=== PATIENT | female | born 1955 | race African-American/Black ===

== ENCOUNTER 2016-12-19 06:23 | Emergency (ER) | payer MEDICARE, OTHER ==
[~2016-12-19] VITALS: Ht 162.6 cm; Wt 78.0 kg
[~2016-12-19 06:23] MED LIST: ASPI81 PO; ATOR40TA28 PO; CARI350 PO; CLON.1 PO; FLUO-191 PO; GABA-529 PO; HYDR-309 PO; HYDR25TA PO; LEVO137T2 PO; METF10002 PO; OLME20TA14 PO; SITA25 PO; TRAZ-147 PO
[2016-12-19 08:05] VITALS: BP 145/80
== END 2016-12-19 08:08 | disposition home or self-care (01) ==
LOC: EMS 06:25
DX: S40.861A Insect bite (nonvenomous) of right upper arm, initial encounter (principal); S40.862A Insect bite (nonvenomous) of left upper arm, initial encounter; S80.861A Insect bite (nonvenomous), right lower leg, initial encounter; S80.862A Insect bite (nonvenomous), left lower leg, initial encounter; I10 Essential (primary) hypertension; E03.9 Hypothyroidism, unspecified; E78.00 Pure hypercholesterolemia, unspecified; E11.9 Type 2 diabetes mellitus without complications; Z87.891 Personal history of nicotine dependence; Z79.82 Long term (current) use of aspirin; W57.XXXA Bitten or stung by nonvenomous insect and other nonvenomous arthropods, initial encounter; Y93.89 Activity, other specified; Y92.89 Other specified places as the place of occurrence of the external cause; Y99.8 Other external cause status
CPT/HCPCS: 99283

== ENCOUNTER 2017-02-08 14:04 | Emergency (ER) | payer MEDICARE, OTHER ==
[~2017-02-08] VITALS: Ht 162.6 cm; Wt 81.8 kg
[~2017-02-08 14:04] MED LIST changes: +CLON-570 PO; -CLON.1 PO; -OLME20TA14 PO; +OLME20TA20 PO
[2017-02-08] MEDS ORDERED: SITA100 PO (14:16)
[2017-02-08 15:50] VITALS: BP 149/83
== END 2017-02-08 15:55 | disposition home or self-care (01) ==
LOC: EMS 14:06
DX: J40 Bronchitis, not specified as acute or chronic (principal); F31.9 Bipolar disorder, unspecified; M54.2 Cervicalgia; G89.29 Other chronic pain; E11.9 Type 2 diabetes mellitus without complications; E78.00 Pure hypercholesterolemia, unspecified; I10 Essential (primary) hypertension; E03.9 Hypothyroidism, unspecified; F20.9 Schizophrenia, unspecified; Z79.82 Long term (current) use of aspirin
CPT/HCPCS: 82962; 93005; 99284

== ENCOUNTER 2017-02-16 10:16 | Emergency (ER) | payer MEDICARE, OTHER ==
[~2017-02-16] VITALS: Ht 162.6 cm; Wt 81.5 kg
[~2017-02-16 10:16] MED LIST changes: +SITA100 PO; -SITA25 PO
[2017-02-16] MEDS ORDERED: ACETAMINOPHEN/CODEINE 300-30 MG TABLET PO ONE (11:45)
[2017-02-16 12:36] VITALS: BP 138/79
== END 2017-02-16 12:56 | disposition home or self-care (01) ==
LOC: EMS 10:18
DX: J02.9 Acute pharyngitis, unspecified (principal)
CPT/HCPCS: 87430; 99283

== ENCOUNTER 2017-03-17 19:37 | Emergency (ER) | payer MEDICARE, OTHER ==
[~2017-03-17] VITALS: Ht 162.6 cm; Wt 82.5 kg
[2017-03-17 19:52] LABS: GLUCOSE,POINT OF CARE 131 MG/DL (70-110)
[2017-03-17] MEDS ORDERED: SODIUM CHLORIDE 0.9% 1,000 ML IV ONE (20:30)
[2017-03-17] MEDS ORDERED: DiphenhydrAMINE HCL 50 MG/ML VIAL IVP ONE (20:30)
[2017-03-17] MEDS ORDERED: METOCLOPRAMIDE HCL 5 MG/ML 2 ML VIAL IVP ONE (20:30)
[2017-03-17 20:51] LABS: BASOPHILS % (AUTO) 0.4 % (0.0-2.0); HEMATOCRIT 41.8 % (36-46); HEMOGLOBIN 13.9 g/dL (12.0-16.0); LYMPHOCYTES # (AUTO) 3.1 K/uL (1.0-4.8); LYMPHOCYTES % (AUTO) 45.2 % (22.0-44.0); MEAN CORPUSCULAR HEMOGLOBIN 27.2 pg (26.0-34.0); MEAN CORPUSCULAR HGB CONC 33.3 G/dL (31.0-37.0); MEAN CORPUSCULAR VOLUME 82 fL (80-100); MONOCYTES # (AUTO) 0.5 K/uL (0.1-1.0); NEUTROPHILS # (AUTO) 3.1 K/uL (1.8-7.7); NEUTROPHILS % (AUTO) 46.4 % (40.0-70.0); PLATELET COUNT (AUTO) 242 K/uL (150-450); RED BLOOD CELL COUNT(AUTO) 5.12 MIL/uL (4.00-5.20)
[2017-03-17 20:54] LABS: ANION GAP 10 mmol/L (8-16); CALCIUM, TOTAL 9.4 mg/dL (8.8-10.5); CARBON DIOXIDE 30 mmol/L (22-29); CHLORIDE 100 mmol/L (98-107); CREATININE 0.99 mg/dL (0.60-1.30); GLOMERULAR FILTR. RATE CALC > 60 mL/min (>60); GLUCOSE,RANDOM 138 mg/dL (70-110); POTASSIUM 3.7 mmol/L (3.5-5.1); SODIUM SERUM 140 mmol/L (136-145); UREA NITROGEN, BLOOD 15 mg/dL (7-18)
[2017-03-17] MEDS ORDERED: KETOROLAC TROMETHAMINE 30 MG/ML VIAL IVP ONE (21:30)
[2017-03-17 22:20] VITALS: BP 131/82
== END 2017-03-17 22:37 | disposition home or self-care (01) ==
LOC: EMS 19:38
DX: R51 Headache (principal); I10 Essential (primary) hypertension; E11.9 Type 2 diabetes mellitus without complications; E78.00 Pure hypercholesterolemia, unspecified; E03.9 Hypothyroidism, unspecified; J40 Bronchitis, not specified as acute or chronic
CPT/HCPCS: 36415; 80048; 82962; 85025; 96361; 96374; 96375; 99284; J1200; J1885; J2765; J7030

== ENCOUNTER 2017-07-29 12:05 | Emergency (ER) | payer MEDICARE, OTHER ==
[~2017-07-29] VITALS: Ht 162.6 cm; Wt 83.2 kg
[~2017-07-29 12:05] MED LIST changes: +OLME20TA10 PO; -OLME20TA20 PO
[2017-07-29] MEDS ORDERED: ACETAMINOPHEN 325 MG TABLET PO ONE (12:45)
[2017-07-29] MEDS ORDERED: GuaiFENesin/D-METHORPHAN [SUGAR-FREE] 200-20MG/10 ML SYRUP UDCUP PO ONE (12:45)
[2017-07-29 13:08] VITALS: BP 142/83
== END 2017-07-29 13:24 | disposition home or self-care (01) ==
LOC: EMS 12:06
DX: J06.9 Acute upper respiratory infection, unspecified (principal); H92.02 Otalgia, left ear; I10 Essential (primary) hypertension; E03.9 Hypothyroidism, unspecified; E78.00 Pure hypercholesterolemia, unspecified; E11.9 Type 2 diabetes mellitus without complications
CPT/HCPCS: 99283

== ENCOUNTER 2017-08-18 15:48 | Emergency (ER) | payer MEDICARE, OTHER ==
[~2017-08-18] VITALS: Ht 170.2 cm; Wt 81.0 kg
[2017-08-18] MEDS ORDERED: DiphenhydrAMINE HCL 25 MG CAPSULE PO ONE (17:00)
[2017-08-18] MEDS ORDERED: HYDROCORTISONE 1% 30 GM OINTMENT TP ONE (17:00)
[2017-08-18 17:42] VITALS: BP 138/90
== END 2017-08-18 17:46 | disposition home or self-care (01) ==
LOC: EMS 15:49
DX: S40.861A Insect bite (nonvenomous) of right upper arm, initial encounter (principal); I10 Essential (primary) hypertension; E11.9 Type 2 diabetes mellitus without complications; E78.00 Pure hypercholesterolemia, unspecified; E03.9 Hypothyroidism, unspecified; G89.29 Other chronic pain; Z79.82 Long term (current) use of aspirin; W57.XXXA Bitten or stung by nonvenomous insect and other nonvenomous arthropods, initial encounter; Y93.89 Activity, other specified; Y92.89 Other specified places as the place of occurrence of the external cause; Y99.8 Other external cause status
CPT/HCPCS: 82962; 99283

== ENCOUNTER 2017-09-05 16:58 | Emergency (ER) | payer MEDICARE, OTHER ==
[~2017-09-05] VITALS: Ht 162.6 cm; Wt 80.5 kg
[2017-09-05 18:26] LABS: BASOPHILS % (AUTO) 1.1 % (0.0-2.0); EOSINOPHILS % (AUTO) 2.4 % (1.0-6.0); HEMATOCRIT 42.6 % (36-46); HEMOGLOBIN 13.9 g/dL (12.0-16.0); LYMPHOCYTES % (AUTO) 37.1 % (22.0-44.0); MEAN CORPUSCULAR HEMOGLOBIN 26.4 pg (26.0-34.0); MEAN CORPUSCULAR HGB CONC 32.7 G/dL (31.0-37.0); MEAN CORPUSCULAR VOLUME 81 fL (80-100); MONOCYTES # (AUTO) 0.7 K/uL (0.1-1.0); MONOCYTES % (AUTO) 8.1 % (2.0-9.0); NEUTROPHILS # (AUTO) 4.1 K/uL (1.8-7.7); NEUTROPHILS % (AUTO) 51.3 % (40.0-70.0); PLATELET COUNT (AUTO) 261 K/uL (150-450); RED BLOOD CELL COUNT(AUTO) 5.27 MIL/uL (4.00-5.20); RED CELL DISTRIBUTION WIDTH 14.6 % (11.5-14.5)
[2017-09-05 18:40] LABS: ANION GAP 9 mmol/L (8-16); CALCIUM, TOTAL 9.6 mg/dL (8.8-10.5); CARBON DIOXIDE 30 mmol/L (22-29); CHLORIDE 100 mmol/L (98-107); CREATININE 1.11 mg/dL (0.60-1.30); GLOMERULAR FILTR. RATE CALC > 60 mL/min (>60); GLUCOSE,RANDOM 162 mg/dL (70-110); POTASSIUM 3.1 mmol/L (3.5-5.1); SODIUM SERUM 139 mmol/L (136-145); UREA NITROGEN, BLOOD 17 mg/dL (7-18)
[2017-09-05 18:41] LABS: APPEARANCE,URINE CLEAR (CLEAR); BILIRUBIN,URINE NEGATIVE (NEGATIVE); GLUCOSE, URINE (UA) NEGATIVE (NEGATIVE); KETONES,URINE TRACE mg/dL (NEGATIVE); LEUKOCYTE ESTERASE ,URINE NEGATIVE (NEGATIVE); NITRATE,URINE NEGATIVE (NEGATIVE); OCCULT BLOOD,URINE NEGATIVE (NEGATIVE); PH,URINE 5.5 (5.0-8.0); PROTEIN,URINE NEGATIVE (NEGATIVE); UROBILINOGEN,URINE 0.2 mg/dL (<=1.0)
[2017-09-05 18:45] LABS: ALANINE AMINOTRANSFERASE 20 U/L (12-78); ALBUMIN 3.9 g/dL (3.4-5.0); ALKALINE PHOSPHATASE 87 U/L (46-116); ASPARTATE AMINOTRANSFERASE 12 U/L (15-37); BILIRUBIN,TOTAL 0.2 mg/dL (0.1-1.0); LIPASE 115 U/L (73-393); TOTAL PROTEIN, SERUM 7.8 g/dL (6.4-8.2)
[2017-09-05] MEDS ORDERED: HYDROCODONE/ACETAMINOPHEN 5-325 MG TABLET PO ONE (19:00)
[2017-09-05 19:13] LABS: GLUCOSE,POINT OF CARE 137 MG/DL (70-110)
[2017-09-05] MEDS ORDERED: POTASSIUM CHLORIDE 20 MEQ ER TABLET PO ONE (20:15)
[2017-09-05 21:08] VITALS: BP 132/75
== END 2017-09-05 21:41 | disposition home or self-care (01) ==
LOC: EMS 16:58
DX: R10.31 Right lower quadrant pain (principal); E87.6 Hypokalemia; F31.9 Bipolar disorder, unspecified; E11.65 Type 2 diabetes mellitus with hyperglycemia; I10 Essential (primary) hypertension; F20.9 Schizophrenia, unspecified; E03.9 Hypothyroidism, unspecified; G89.29 Other chronic pain; Z90.710 Acquired absence of both cervix and uterus; Z79.82 Long term (current) use of aspirin; Z79.899 Other long term (current) drug therapy
CPT/HCPCS: 76856; 82962; 99285

== ENCOUNTER 2017-11-30 06:17 | Emergency (ER) | payer MEDICARE, OTHER ==
[~2017-11-30] VITALS: Ht 162.6 cm; Wt 75.0 kg
[~2017-11-30 06:17] MED LIST changes: -METF10002 PO; +METF10004 PO; -TRAZ-147 PO; +TRAZ-220 PO
[2017-11-30 06:30] VITALS: BP 111/88
[2017-11-30 06:43] LABS: GLUCOSE,POINT OF CARE 141 MG/DL (70-110)
== END 2017-11-30 08:58 | disposition home or self-care (01) ==
LOC: EMS 06:18
DX: L73.8 Other specified follicular disorders (principal)
CPT/HCPCS: 99282

== ENCOUNTER 2017-12-26 18:56 | Emergency (ER) | payer MEDICARE, OTHER ==
[~2017-12-26] VITALS: Ht 162.6 cm; Wt 78.2 kg
[2017-12-26 19:18] LABS: GLUCOSE,POINT OF CARE 166 MG/DL (70-110)
[2017-12-26] MEDS ORDERED: LOSA50TA37 PO (19:19)
[2017-12-26] MEDS ORDERED: AMLO-512 PO (19:19)
[2017-12-26] MEDS ORDERED: ACETAMINOPHEN 500 MG TABLET PO ONE (20:00)
[2017-12-26 21:38] VITALS: BP 138/86
== END 2017-12-26 21:44 | disposition home or self-care (01) ==
LOC: EMS 18:58
DX: S60.222A Contusion of left hand, initial encounter (principal); M54.5 Low back pain; F20.9 Schizophrenia, unspecified; F31.9 Bipolar disorder, unspecified; E11.9 Type 2 diabetes mellitus without complications; E78.00 Pure hypercholesterolemia, unspecified; I10 Essential (primary) hypertension; E03.9 Hypothyroidism, unspecified; G89.29 Other chronic pain; Z90.710 Acquired absence of both cervix and uterus; Z79.82 Long term (current) use of aspirin; Z79.84 Long term (current) use of oral hypoglycemic drugs; W19.XXXA Unspecified fall, initial encounter; Y93.89 Activity, other specified; Y92.89 Other specified places as the place of occurrence of the external cause; Y99.8 Other external cause status
CPT/HCPCS: 99284

== ENCOUNTER 2018-03-31 00:31 | Inpatient (IN) | payer MEDICARE, OTHER ==
[~2018-03-31] VITALS: Ht 162.6 cm; Wt 82.5 kg
[2018-03-31] VITALS (7 sets, daily range): BP systolic 124–166; BP diastolic 71–94
[~2018-03-31 00:31] MED LIST changes: +AMLO-512 PO; -ATOR40TA28 PO; -CARI350 PO; +LOSA50TA25 PO; +METF-446 PO; -METF10004 PO; -OLME20TA10 PO; -TRAZ-220 PO
[2018-03-31 00:48] LABS: GLUCOSE,POINT OF CARE 130 MG/DL (70-110)
[2018-03-31] MEDS ORDERED: HYDR25TA PO (01:05)
[2018-03-31] MEDS ORDERED: ALBU8HFA IH (01:05)
[2018-03-31] MEDS ORDERED: FLUT110HFA IH (01:05)
[2018-03-31] MEDS ORDERED: ATOR10TA84 PO (01:05)
[2018-03-31] MEDS ORDERED: SENN-176 PO (01:05)
[2018-03-31] MEDS ORDERED: KDUR20 PO (01:05)
[2018-03-31] MEDS ORDERED: GABA-529 PO (01:05)
[2018-03-31] MEDS ORDERED: IBUP-2070 PO (01:05)
[2018-03-31] MEDS ORDERED: CETI-290 PO (01:05)
[2018-03-31 01:08] LABS: HEMATOCRIT 38.7 % (36-46); HEMOGLOBIN 12.7 g/dL (12.0-16.0); MEAN CORPUSCULAR HEMOGLOBIN 26.6 pg (26.0-34.0); MEAN CORPUSCULAR HGB CONC 32.8 G/dL (31.0-37.0); MEAN CORPUSCULAR VOLUME 81 fL (80-100); PLATELET COUNT (AUTO) 228 K/uL (150-450); RED BLOOD CELL COUNT(AUTO) 4.77 MIL/uL (4.00-5.20); RED CELL DISTRIBUTION WIDTH 14.6 % (11.5-14.5)
[2018-03-31 01:17] LABS: ANION GAP 8 mmol/L (8-16); CALCIUM, TOTAL 8.4 mg/dL (8.8-10.5); CARBON DIOXIDE 31 mmol/L (22-29); CHLORIDE 103 mmol/L (98-107); CREATININE 0.83 mg/dL (0.60-1.30); GLOMERULAR FILTR. RATE CALC > 60 mL/min (>60); GLUCOSE,RANDOM 152 mg/dL (70-110); SODIUM SERUM 142 mmol/L (136-145); UREA NITROGEN, BLOOD 13 mg/dL (7-18)
[2018-03-31 01:20] LABS: INR 0.9 (0.9-1.1); PROTHROMBIN TIME 9.9 SEC (9.4-11.6)
[2018-03-31] MEDS ORDERED: ASPIRIN 81 MG CHEWABLE TABLET PO ONE (01:30)
[2018-03-31] MEDS ORDERED: ONDANSETRON HCL 4 MG/2 ML VIAL IVP ONE (01:30)
[2018-03-31] MEDS ORDERED: SODIUM CHLORIDE 0.9% 1,000 ML IV ONE (01:30)
[2018-03-31] MEDS ORDERED: MORPHINE SULFATE 4 MG/ML SYRINGE IVP ONE (01:30)
[2018-03-31] MEDS ORDERED: NITROGLYCERIN 2% (1 GM=INCH) PACKET TP ONE (01:30)
[2018-03-31 01:37] LABS: BAND NEUTROPHILS % (MANUAL) 0 % (0-5)
[2018-03-31 01:38] LABS: EOSINOPHILS % (MANUAL) 3 % (1-6); LYMPHOCYTES % (MANUAL) 60 % (22-44); MONOCYTES % (MANUAL) 5 % (2-9); REACTIVE LYMPHOCYTES 6 % (0-0); SEGMENTED NEUTROPHILS % 26 % (40-70)
[2018-03-31 01:39] LABS: B-TYPE NATRIURETIC PEPTIDE < 5 pg/mL (0-100)
[2018-03-31 01:42] LABS: ALANINE AMINOTRANSFERASE 25 U/L (12-78); ALBUMIN 3.4 g/dL (3.4-5.0); ALKALINE PHOSPHATASE 89 U/L (46-116); ASPARTATE AMINOTRANSFERASE 21 U/L (15-37); BILIRUBIN,TOTAL 0.2 mg/dL (0.1-1.0); CREATINE KINASE, TOTAL ONLY 295 U/L (26-192); TOTAL PROTEIN, SERUM 6.7 g/dL (6.4-8.2)
[2018-03-31 01:50] LABS: D-DIMER 0.17 mg/L FEU (0.00-0.50)
[2018-03-31] MEDS ORDERED: KETOROLAC TROMETHAMINE 30 MG/ML VIAL IVP ONE (02:15)
[2018-03-31 02:34] LABS: APPEARANCE,URINE CLOUDY (CLEAR); BILIRUBIN,URINE NEGATIVE (NEGATIVE); GLUCOSE, URINE (UA) NEGATIVE (NEGATIVE); KETONES,URINE NEGATIVE (NEGATIVE); LEUKOCYTE ESTERASE ,URINE NEGATIVE (NEGATIVE); NITRATE,URINE NEGATIVE (NEGATIVE); OCCULT BLOOD,URINE NEGATIVE (NEGATIVE); PROTEIN,URINE NEGATIVE (NEGATIVE); UROBILINOGEN,URINE 0.2 mg/dL (<=1.0)
[2018-03-31] MEDS ORDERED: SODIUM CHLORIDE 0.9% 100 ML ONE (02:57)
[2018-03-31] MEDS ORDERED: IOVERSOL 350 MG/ML 100 ML VIAL ONE (02:57)
[2018-03-31] MEDS ORDERED: POTASSIUM CHLORIDE 20 MEQ ER TABLET PO ONE (03:45)
[2018-03-31 04:03] LABS: GLUCOSE,POINT OF CARE 99 MG/DL (70-110)
[2018-03-31] MEDS ORDERED: ACETAMINOPHEN 325 MG TABLET PO PRN (05:00)
[2018-03-31] MEDS ORDERED: ONDANSETRON HCL 4 MG/2 ML VIAL IVP PRN (05:00)
[2018-03-31] MEDS ORDERED: 0.9% SODIUM CHLORIDE 10 ML SYRINGE IVP PRN (05:00)
[2018-03-31] MEDS ORDERED: MULT-1203 PO (07:41)
[2018-03-31] MEDS ORDERED: INSULIN LISPRO 100 UNITS/ML SQ PRN (09:45)
[2018-03-31] MEDS ORDERED: DEXTROSE 50%-WATER 25 GM/50 ML SYRINGE IVP PRN (09:45)
[2018-03-31] MEDS ORDERED: MAGNESIUM HYDROXIDE SUSPENSION 30 ML UDCUP PO PRN (09:45)
[2018-03-31] MEDS: ACETAMINOPHEN 325 MG TABLET PO PRN ×2 (09:47→20:38)
[2018-03-31] MEDS: ASPIRIN 81 MG CHEWABLE TABLET PO SCH (11:19)
[2018-03-31] MEDS: LEVOTHYROXINE SODIUM 137 MCG TABLET PO SCH (11:19)
[2018-03-31 13:34] LABS: GLUCOMETER DEV NAME(LOC) 5S 1N; GLUCOSE,POINT OF CARE 143 MG/DL (70-110)
[2018-03-31] MEDS: HEPARIN SODIUM,PORCINE 5,000 UNITS/ML VIAL SQ SCH (15:51)
[2018-03-31 18:38] LABS: GLUCOMETER DEV NAME(LOC) 5N 1P; GLUCOSE,POINT OF CARE 149 MG/DL (70-110)
[2018-03-31 18:39] LABS: GLUCOMETER DEV NAME(LOC) 5N 1P; GLUCOSE,POINT OF CARE 100 MG/DL (70-110)
[2018-03-31] MEDS: DOCUSATE SODIUM 100 MG CAPSULE PO SCH (20:18)
[2018-04-01] MEDS: HEPARIN SODIUM,PORCINE 5,000 UNITS/ML VIAL SQ SCH ×2 (00:15→08:15)
[2018-04-01 04:33] VITALS: BP 141/79
[2018-04-01] MEDS: LEVOTHYROXINE SODIUM 137 MCG TABLET PO SCH (05:31)
[2018-04-01 05:59] LABS: ANION GAP 3 mmol/L (8-16); CALCIUM, TOTAL 8.3 mg/dL (8.8-10.5); CARBON DIOXIDE 34 mmol/L (22-29); CHLORIDE 104 mmol/L (98-107); CREATININE 0.95 mg/dL (0.60-1.30); GLOMERULAR FILTR. RATE CALC > 60 mL/min (>60); GLUCOSE,RANDOM 126 mg/dL (70-110); POTASSIUM 3.6 mmol/L (3.5-5.1); SODIUM SERUM 141 mmol/L (136-145); UREA NITROGEN, BLOOD 11 mg/dL (7-18)
[2018-04-01 08:03] VITALS: BP 146/88
[2018-04-01] MEDS: DOCUSATE SODIUM 100 MG CAPSULE PO SCH (08:16)
[2018-04-01] MEDS: ASPIRIN 81 MG CHEWABLE TABLET PO SCH (08:16)
[2018-04-01] MEDS: ACETAMINOPHEN 325 MG TABLET PO PRN (08:17)
[2018-04-01] MEDS ORDERED: PANTOPRAZOLE SODIUM 40 MG DR TABLET PO SCH (09:00)
[2018-04-01] MEDS ORDERED: LISINOPRIL 5 MG TABLET PO SCH (09:00)
[2018-04-01] MEDS ORDERED: METOPROLOL TARTRATE 25 MG TABLET PO SCH (09:00)
[2018-04-01 09:29] LABS: GLUCOMETER DEV NAME(LOC) 5S 1N; GLUCOSE,POINT OF CARE 123 MG/DL (70-110)
[2018-04-01 11:31] VITALS: BP 148/81
[2018-04-01 17:24] LABS: GLUCOMETER DEV NAME(LOC) 5S 2R; GLUCOSE,POINT OF CARE 124 MG/DL (70-110)
[2018-04-02 14:34] LABS: GLUCOMETER DEV NAME(LOC) 5S 1N; GLUCOSE,POINT OF CARE 119 MG/DL (70-110)
== END 2018-04-01 13:10 | disposition home or self-care (01) | DRG 313 ==
LOC: EMS 00:31 → 5S 05:04
PROVIDERS: ADMIT Internal Medicine; ATTEND Internal Medicine
DX: R07.89 Other chest pain (principal); E03.9 Hypothyroidism, unspecified; E11.9 Type 2 diabetes mellitus without complications; E78.00 Pure hypercholesterolemia, unspecified; F17.200 Nicotine dependence, unspecified, uncomplicated; F20.9 Schizophrenia, unspecified; I11.9 Hypertensive heart disease without heart failure; I20.9 Angina pectoris, unspecified; J44.9 Chronic obstructive pulmonary disease, unspecified; Z82.49 Family history of ischemic heart disease and other diseases of the circulatory system; Z83.3 Family history of diabetes mellitus; Z86.718 Personal history of other venous thrombosis and embolism; Z90.710 Acquired absence of both cervix and uterus; F32.9 Major depressive disorder, single episode, unspecified
CPT/HCPCS: 71275; 84443; 85379; 87081; 93005; 93306; 96361; 96374; 96375; G0378; J1644; J1885; J2270; J2405; J7030; J7050

== ENCOUNTER 2018-04-04 11:13 | Emergency (ER) | payer MEDICARE, OTHER ==
[~2018-04-04] VITALS: Ht 162.6 cm; Wt 77.3 kg
[~2018-04-04 11:13] MED LIST changes: +ALBU8HFA IH; -AMLO-512 PO; -CLON-570 PO; -FLUO-191 PO; +FLUT110HFA IH; -GABA-529 PO; -HYDR-309 PO; -HYDR25TA PO; +MULT-1203 PO; +SENN-176 PO; -SITA100 PO
[2018-04-04 11:16] VITALS: BP 137/77
[2018-04-04 11:28] LABS: GLUCOSE,POINT OF CARE 195 MG/DL (70-110)
[2018-04-04] MEDS: ACETAMINOPHEN 500 MG TABLET PO ONE (11:54)
== END 2018-04-04 12:17 | disposition home or self-care (01) ==
LOC: EMS 11:14
DX: R21 Rash and other nonspecific skin eruption (principal); I10 Essential (primary) hypertension; E11.9 Type 2 diabetes mellitus without complications; E03.9 Hypothyroidism, unspecified; F20.9 Schizophrenia, unspecified; F31.9 Bipolar disorder, unspecified; Z79.82 Long term (current) use of aspirin; Z79.84 Long term (current) use of oral hypoglycemic drugs

== ENCOUNTER 2018-08-13 06:53 | Emergency (ER) | payer MEDICARE, OTHER ==
[~2018-08-13] VITALS: Ht 162.6 cm; Wt 81.8 kg
[~2018-08-13 06:53] MED LIST changes: -LOSA50TA25 PO; +LOSA50TA64 PO
[2018-08-13] MEDS ORDERED: FE PR (07:16)
[2018-08-13 07:19] LABS: GLUCOSE,POINT OF CARE 163 MG/DL (70-110)
[2018-08-13] MEDS ORDERED: MINERAL OIL 133 ML ENEMA PR ONE (07:30)
[2018-08-13 07:55] LABS: BASOPHILS % (AUTO) 0.7 % (0.0-2.0); EOSINOPHILS % (AUTO) 1.2 % (1.0-6.0); HEMATOCRIT 40.2 % (36-46); HEMOGLOBIN 12.9 g/dL (12.0-16.0); LYMPHOCYTES # (AUTO) 2.7 K/uL (1.0-4.8); LYMPHOCYTES % (AUTO) 44.3 % (22.0-44.0); MEAN CORPUSCULAR HEMOGLOBIN 26.1 pg (26.0-34.0); MEAN CORPUSCULAR HGB CONC 32.1 G/dL (31.0-37.0); MEAN CORPUSCULAR VOLUME 81 fL (80-100); MONOCYTES # (AUTO) 0.6 K/uL (0.1-1.0); MONOCYTES % (AUTO) 9.1 % (2.0-9.0); NEUTROPHILS # (AUTO) 2.7 K/uL (1.8-7.7); NEUTROPHILS % (AUTO) 44.7 % (40.0-70.0); PLATELET COUNT (AUTO) 266 K/uL (150-450); RED BLOOD CELL COUNT(AUTO) 4.95 MIL/uL (4.00-5.20); RED CELL DISTRIBUTION WIDTH 14.6 % (11.5-14.5)
[2018-08-13 08:00] LABS: APPEARANCE,URINE CLEAR (CLEAR); BILIRUBIN,URINE NEGATIVE (NEGATIVE); GLUCOSE, URINE (UA) NEGATIVE (NEGATIVE); KETONES,URINE NEGATIVE (NEGATIVE); LEUKOCYTE ESTERASE ,URINE NEGATIVE (NEGATIVE); NITRATE,URINE NEGATIVE (NEGATIVE); OCCULT BLOOD,URINE NEGATIVE (NEGATIVE); PH,URINE 6.5 (5.0-8.0); PROTEIN,URINE NEGATIVE (NEGATIVE); UROBILINOGEN,URINE 0.2 mg/dL (<=1.0)
[2018-08-13 08:03] LABS: ANION GAP 10 mmol/L (8-16); CALCIUM, TOTAL 9.8 mg/dL (8.8-10.5); CARBON DIOXIDE 30 mmol/L (22-29); CHLORIDE 102 mmol/L (98-107); CREATININE 0.88 mg/dL (0.60-1.30); GLOMERULAR FILTR. RATE CALC > 60 mL/min (>60); GLUCOSE,RANDOM 142 mg/dL (70-110); POTASSIUM 3.6 mmol/L (3.5-5.1); SODIUM SERUM 142 mmol/L (136-145); UREA NITROGEN, BLOOD 11 mg/dL (7-18)
[2018-08-13 08:09] LABS: ALANINE AMINOTRANSFERASE 37 U/L (12-78); ALBUMIN 3.7 g/dL (3.4-5.0); ALKALINE PHOSPHATASE 89 U/L (46-116); ASPARTATE AMINOTRANSFERASE 21 U/L (15-37); BILIRUBIN,TOTAL 0.3 mg/dL (0.1-1.0); LIPASE 152 U/L (73-393); TOTAL PROTEIN, SERUM 6.9 g/dL (6.4-8.2)
[2018-08-13 08:40] LABS: BACTERIA,URINE None Seen /HPF (None Seen); RBC,URINE None Seen /HPF (0-2); SQUAMOUS EPITHELIAL CELL,UR Few /LPF (None Seen); WBC,URINE 0-2 /HPF (0-5)
[2018-08-13 09:00] VITALS: BP 165/82
== END 2018-08-13 09:20 | disposition home or self-care (01) ==
LOC: EMS 06:55
DX: K59.00 Constipation, unspecified (principal); F31.9 Bipolar disorder, unspecified; E11.9 Type 2 diabetes mellitus without complications; E78.00 Pure hypercholesterolemia, unspecified; F20.9 Schizophrenia, unspecified; E03.9 Hypothyroidism, unspecified; G89.29 Other chronic pain; Z90.710 Acquired absence of both cervix and uterus; Z79.82 Long term (current) use of aspirin; Z79.84 Long term (current) use of oral hypoglycemic drugs
CPT/HCPCS: 74176

== ENCOUNTER 2018-09-30 15:44 | Emergency (ER) | payer MEDICARE, OTHER ==
[~2018-09-30] VITALS: Ht 162.6 cm; Wt 72.7 kg
[~2018-09-30 15:44] MED LIST changes: +FE PR
[2018-09-30 16:09] LABS: GLUCOSE,POINT OF CARE 176 MG/DL (70-110)
[2018-09-30 17:31] VITALS: BP 144/90
[2018-09-30 17:45] LABS: GLUCOSE,POINT OF CARE 117 MG/DL (70-110)
[2018-09-30] MEDS ORDERED: LIDOCAINE/PF 1% 5 ML VIAL INJ ONE (17:45)
== END 2018-09-30 17:55 | disposition home or self-care (01) ==
LOC: EMS 15:45
DX: L02.212 Cutaneous abscess of back [any part, except buttock and flank] (principal); L70.0 Acne vulgaris; E11.9 Type 2 diabetes mellitus without complications; E78.00 Pure hypercholesterolemia, unspecified; I10 Essential (primary) hypertension; E03.9 Hypothyroidism, unspecified; F31.9 Bipolar disorder, unspecified; F20.9 Schizophrenia, unspecified; Z90.710 Acquired absence of both cervix and uterus; Z79.899 Other long term (current) drug therapy
CPT/HCPCS: 82962; 99284; J2001

== ENCOUNTER 2018-12-19 20:12 | Emergency (ER) | payer MEDICARE, OTHER ==
[~2018-12-19] VITALS: Ht 162.6 cm; Wt 81.8 kg
[2018-12-19] MEDS ORDERED: HYDR12.530 PO (20:31)
[2018-12-19 20:35] LABS: GLUCOSE,POINT OF CARE 87 MG/DL (70-110)
[2018-12-19 21:00] VITALS: BP 148/94
[2018-12-19] MEDS ORDERED: ACETAMINOPHEN 325 MG TABLET PO ONE (21:00)
[2018-12-19] MEDS ORDERED: CEPHALEXIN MONOHYDRATE 500 MG CAPSULE PO ONE (21:00)
[2018-12-19] MEDS ORDERED: DiphenhydrAMINE HCL 25 MG CAPSULE PO ONE (21:00)
== END 2018-12-19 21:23 | disposition home or self-care (01) ==
LOC: EMS 20:14
DX: S50.362A Insect bite (nonvenomous) of left elbow, initial encounter (principal); F31.9 Bipolar disorder, unspecified; E11.9 Type 2 diabetes mellitus without complications; E78.00 Pure hypercholesterolemia, unspecified; I10 Essential (primary) hypertension; E03.9 Hypothyroidism, unspecified; G89.29 Other chronic pain; F20.9 Schizophrenia, unspecified; Z90.710 Acquired absence of both cervix and uterus; Z79.82 Long term (current) use of aspirin; Z79.84 Long term (current) use of oral hypoglycemic drugs; W57.XXXA Bitten or stung by nonvenomous insect and other nonvenomous arthropods, initial encounter; Y93.89 Activity, other specified; Y92.89 Other specified places as the place of occurrence of the external cause; Y99.8 Other external cause status

== ENCOUNTER 2019-08-20 12:18 | Emergency (ER) | payer MEDICARE, OTHER ==
[~2019-08-20] VITALS: Ht 162.6 cm; Wt 81.5 kg
[~2019-08-20 12:18] MED LIST changes: +ASPI-728 PO; -ASPI81 PO; +HYDR12.530 PO; +LOSA-88 PO; -LOSA50TA64 PO; -SENN-176 PO; +SENN-277 PO
[2019-08-20] MEDS ORDERED: AMLO5TAB9 PO (12:24)
[2019-08-20] MEDS ORDERED: HYDR-1475 PO (13:36)
[2019-08-20] MEDS ORDERED: SITA100 PO (13:38)
[2019-08-20] MEDS ORDERED: AMLO10TA7 PO (13:38)
[2019-08-20] MEDS ORDERED: ACETAMINOPHEN 500 MG TABLET PO ONE (13:45)
[2019-08-20] MEDS ORDERED: LIDOCAINE 5% TRANSDERMAL PATCH TD ONE (13:45)
[2019-08-20 14:33] VITALS: BP 136/89
== END 2019-08-20 15:14 | disposition home or self-care (01) ==
LOC: EMS 12:19
DX: M62.838 Other muscle spasm (principal); R10.9 Unspecified abdominal pain; F31.9 Bipolar disorder, unspecified; E11.9 Type 2 diabetes mellitus without complications; E78.00 Pure hypercholesterolemia, unspecified; I10 Essential (primary) hypertension; E03.9 Hypothyroidism, unspecified; G89.29 Other chronic pain; Z90.710 Acquired absence of both cervix and uterus; Z79.82 Long term (current) use of aspirin; Z79.84 Long term (current) use of oral hypoglycemic drugs

== ENCOUNTER 2020-01-24 07:55 | Emergency (ER) | payer MEDICARE, OTHER ==
[~2020-01-24] VITALS: Ht 162.6 cm; Wt 77.3 kg
[~2020-01-24 07:55] MED LIST changes: +AMLO-258 PO; -FE PR; +HYDR-1475 PO; -HYDR12.530 PO; -LOSA-88 PO; +LOSA50TA37 PO; -MULT-1203 PO; -SENN-277 PO; +SITA100 PO
[2020-01-24 07:57] VITALS: BP 123/96
== END 2020-01-24 08:44 | disposition home or self-care (01) ==
LOC: EMS 07:55
DX: R22.1 Localized swelling, mass and lump, neck (principal); I10 Essential (primary) hypertension; E03.9 Hypothyroidism, unspecified; E11.9 Type 2 diabetes mellitus without complications; E78.00 Pure hypercholesterolemia, unspecified; F31.9 Bipolar disorder, unspecified; F20.9 Schizophrenia, unspecified; Z79.82 Long term (current) use of aspirin; Z79.899 Other long term (current) drug therapy

== ENCOUNTER 2021-05-08 07:00 | Emergency (ER) | payer MEDICARE, OTHER ==
[~2021-05-08] VITALS: Ht 162.6 cm; Wt 84.1 kg
[~2021-05-08 07:00] MED LIST changes: +ASPI-1450 PO; -ASPI-728 PO; +FLUT110H IH; -FLUT110HFA IH; -HYDR-1475 PO; +HYDR25TA2 PO; +LOSA-382 PO; -LOSA50TA37 PO
[2021-05-08 07:31] LABS: GLUCOSE,POINT OF CARE 179 MG/DL (70-110)
[2021-05-08 07:45] LABS: COVID AG,FIA SOURCE NASAL SWAB
[2021-05-08] MEDS ORDERED: PB/HYOSCY/ATR/SCOP/LIDO/MAALOX 55 ML BOTTLE PO ONE (07:45)
[2021-05-08] MEDS ORDERED: DEXAMETHASONE 4 MG TABLET PO ONE (07:45)
[2021-05-08 08:04] LABS: INFLUENZA TYPE A NEGATIVE FOR TYPE A (NEGATIVE); INFLUENZA TYPE B NEGATIVE FOR TYPE B (NEGATIVE)
[2021-05-08 08:56] VITALS: BP 148/96
[2021-05-08] MEDS ORDERED: AZITHROMYCIN 500 MG TABLET PO ONE (09:00)
== END 2021-05-08 09:07 | disposition home or self-care (01) ==
LOC: EMS 07:03
DX: J18.9 Pneumonia, unspecified organism (principal); E11.8 Type 2 diabetes mellitus with unspecified complications; E78.00 Pure hypercholesterolemia, unspecified; I10 Essential (primary) hypertension; F20.9 Schizophrenia, unspecified; F31.9 Bipolar disorder, unspecified; E03.9 Hypothyroidism, unspecified; Z90.710 Acquired absence of both cervix and uterus; Z90.89 Acquired absence of other organs; Z20.822 Contact with and (suspected) exposure to COVID-19; Z79.84 Long term (current) use of oral hypoglycemic drugs
CPT/HCPCS: 71045; 82962; 87426; 87804; 93005; 99285; J8540; Q9967

== ENCOUNTER 2022-03-04 17:50 | Emergency (ER) | payer MEDICARE, OTHER ==
[~2022-03-04] VITALS: Ht 162.6 cm; Wt 79.1 kg
[2022-03-04 17:54] VITALS: BP 155/82
[2022-03-04 18:21] LABS: GLUCOMETER DEV NAME(LOC) ERT.5; GLUCOSE,POINT OF CARE 247 MG/DL (70-110)
[2022-03-04] MEDS ORDERED: MECLIZINE HCL 25 MG TABLET PO ONE (19:15)
[2022-03-04] MEDS ORDERED: ACETAMINOPHEN 500 MG TABLET PO ONE (19:15)
[2022-03-04] MEDS ORDERED: ONDANSETRON HCL 4 MG TABLET PO ONE (19:15)
[2022-03-04 19:45] LABS: BASOPHILS % (AUTO) 0.4 % (0.0-2.0); EOSINOPHILS % (AUTO) 1.8 % (1.0-6.0); HEMOGLOBIN 13.4 g/dL (12.0-16.0); LYMPHOCYTES % (AUTO) 41.5 % (22.0-44.0); MEAN CORPUSCULAR HEMOGLOBIN 26.1 pg (26.0-34.0); MEAN CORPUSCULAR HGB CONC 31.9 G/dL (31.0-37.0); MEAN CORPUSCULAR VOLUME 82 fL (80-100); MONOCYTES # (AUTO) 0.5 K/uL (0.1-1.0); MONOCYTES % (AUTO) 7.5 % (2.0-9.0); NEUTROPHILS # (AUTO) 3.5 K/uL (1.8-7.7); NEUTROPHILS % (AUTO) 48.8 % (40.0-70.0); PLATELET COUNT (AUTO) 264 K/uL (150-450); RED BLOOD CELL COUNT(AUTO) 5.12 MIL/uL (4.00-5.20)
[2022-03-04 19:55] LABS: ANION GAP 12 mmol/L (8-16); CARBON DIOXIDE 28 mmol/L (22-29); CHLORIDE 100 mmol/L (98-107); CREATININE 1.16 mg/dL (0.60-1.30); GLUCOSE,RANDOM 200 mg/dL (70-110); POTASSIUM 3.3 mmol/L (3.5-5.1); SODIUM SERUM 140 mmol/L (136-145); UREA NITROGEN, BLOOD 21 mg/dL (7-18)
[2022-03-04 19:56] LABS: GLOMERULAR FILTR. RATE CALC 57 mL/min (>60)
[2022-03-04 20:01] LABS: ALANINE AMINOTRANSFERASE 62 U/L (12-78); ALBUMIN 3.9 g/dL (3.4-5.0); ALKALINE PHOSPHATASE 83 U/L (46-116); ASPARTATE AMINOTRANSFERASE 45 U/L (15-37); BILIRUBIN,TOTAL 0.2 mg/dL (0.1-1.0); TOTAL PROTEIN, SERUM 7.7 g/dL (6.4-8.2)
[2022-03-04 20:15] LABS: AMPHET/METH SCREEN,URINE NEGATIVE (NEGATIVE); BARBITURATE SCREEN, URINE NEGATIVE (NEGATIVE); BENZODIAZEPINES SCREEN,URINE NEGATIVE (NEGATIVE); CANNABINOID SCREEN,URINE NEGATIVE (NEGATIVE); COCAINE SCREEN,URINE NEGATIVE (NEGATIVE); METHADONE SCREEN, URINE NEGATIVE (NEGATIVE); OPIATE SCREEN,URINE NEGATIVE (NEGATIVE)
[2022-03-04 20:18] LABS: PHENCYCLIDINE SCREEN,URINE NEGATIVE (NEGATIVE)
[2022-03-04] MEDS ORDERED: MECL-134 PO (21:10)
[2022-03-05] MEDS ORDERED: LEVO125 PO (14:31)
[2022-03-05] MEDS ORDERED: ASPI-1450 PO (14:31)
[2022-03-05] MEDS ORDERED: METF-81 PO (14:31)
[2022-03-05] MEDS ORDERED: AMLO-258 PO (14:31)
[2022-03-05] MEDS ORDERED: SITA100 PO (14:33)
[2022-03-05] MEDS ORDERED: LOSA-382 PO (14:33)
[2022-03-05] MEDS ORDERED: POTA-92 PO (14:33)
[2022-03-08] MEDS ORDERED: FLUT16SP NASAL (18:03)
[2022-03-08] MEDS ORDERED: PREN1TAB26 PO (18:03)
[2022-03-08] MEDS ORDERED: CETI10TA58 PO (18:03)
[2022-03-08] MEDS ORDERED: CHLO25TA3 PO (18:03)
[2022-03-08] MEDS ORDERED: POTA-79 PO (18:03)
[2022-03-08] MEDS ORDERED: ATOR10TA69 PO (18:03)
[2022-03-08] MEDS ORDERED: ASPI-1444 PO (18:03)
[2022-03-08] MEDS ORDERED: GABA600T10 PO (18:03)
[2022-03-08] MEDS ORDERED: KETO5DRO6 OU (18:03)
[2022-03-08] MEDS ORDERED: METF-446 PO (18:03)
[2022-03-08] MEDS ORDERED: HYDR-4069 PO (18:03)
[2022-03-09] MEDS ORDERED: CLOP75TA60 PO (15:09)
[2022-03-09] MEDS ORDERED: ATOR20TA65 PO (15:09)
== END 2022-03-04 21:20 | disposition home or self-care (01) ==
LOC: EMS 17:50
DX: R42 Dizziness and giddiness (principal); E11.65 Type 2 diabetes mellitus with hyperglycemia; E87.6 Hypokalemia; F31.9 Bipolar disorder, unspecified; E78.00 Pure hypercholesterolemia, unspecified; I10 Essential (primary) hypertension; F20.9 Schizophrenia, unspecified; E03.9 Hypothyroidism, unspecified; Z87.09 Personal history of other diseases of the respiratory system; Z87.898 Personal history of other specified conditions; Z87.2 Personal history of diseases of the skin and subcutaneous tissue; Z90.710 Acquired absence of both cervix and uterus; Z98.890 Other specified postprocedural states
CPT/HCPCS: 99284; 70450; 80053; 82962; 84484; 85025; 36415; 80307; G0480; Q0162

== ENCOUNTER 2022-08-27 13:30 | Emergency (ER) | payer MEDICARE, OTHER ==
[~2022-08-27] VITALS: Ht 167.6 cm; Wt 77.3 kg
[~2022-08-27 13:30] MED LIST changes: -ALBU8HFA IH; +ASPI-1444 PO; -ASPI-1450 PO; +ATOR20TA65 PO; +CETI10TA58 PO; +CHLO25TA3 PO; +CLOP75TA60 PO; -FLUT110H IH; +FLUT16SP NASAL; +GABA600T10 PO; +HYDR-4069 PO; -HYDR25TA2 PO; +KETO-99 OU; +LEVO125 PO; -LEVO137T2 PO; +POTA-79 PO; +PREN1TAB26 PO
[2022-08-27] MEDS ORDERED: LIDOCAINE/PF 1% 2 ML VIAL IM ONE (14:15)
[2022-08-27] MEDS ORDERED: CefTRIAXone SODIUM 1 GM/VIAL IM ONE (14:15)
[2022-08-27] MEDS ORDERED: AZITHROMYCIN 500 MG TABLET PO ONE (14:15)
[2022-08-27] MEDS ORDERED: MetroNIDAZOLE 500 MG TABLET PO ONE (14:15)
[2022-08-27 15:24] LABS: APPEARANCE,URINE CLEAR (CLEAR); BILIRUBIN,URINE NEGATIVE (NEGATIVE); GLUCOSE, URINE (UA) NEGATIVE (NEGATIVE); KETONES,URINE NEGATIVE (NEGATIVE); LEUKOCYTE ESTERASE ,URINE NEGATIVE (NEGATIVE); NITRATE,URINE NEGATIVE (NEGATIVE); OCCULT BLOOD,URINE NEGATIVE (NEGATIVE); PROTEIN,URINE NEGATIVE (NEGATIVE); UROBILINOGEN,URINE <=1.0 mg/dL (<=1.0)
[2022-08-27 15:37] LABS: BACTERIA,URINE None Seen /HPF (None Seen); RBC,URINE None Seen /HPF (0-2); SQUAMOUS EPITHELIAL CELL,UR Few /LPF (None Seen); WBC,URINE None Seen /HPF (0-5)
[2022-08-27 15:52] VITALS: BP 139/85
== END 2022-08-27 15:54 | disposition home or self-care (01) ==
LOC: EMS 13:32
DX: N76.0 Acute vaginitis (principal); F31.9 Bipolar disorder, unspecified; E11.9 Type 2 diabetes mellitus without complications; E78.00 Pure hypercholesterolemia, unspecified; I10 Essential (primary) hypertension; F20.9 Schizophrenia, unspecified; J40 Bronchitis, not specified as acute or chronic; E03.9 Hypothyroidism, unspecified; G89.29 Other chronic pain; Z90.710 Acquired absence of both cervix and uterus
CPT/HCPCS: 99283; 81001; 82962; 87491; 87591; 96372; J0696; J3490; Q9967

== ENCOUNTER 2023-07-16 11:24 | Emergency (ER) | payer MEDICARE, OTHER ==
[~2023-07-16] VITALS: Ht 162.6 cm; Wt 78.2 kg
[~2023-07-16 11:24] MED LIST changes: +POTA-364 PO; -POTA-79 PO
[2023-07-16 11:31] VITALS: TEMP 98.2
[2023-07-16 13:13] LABS: APPEARANCE,URINE CLEAR (CLEAR); BILIRUBIN,URINE NEGATIVE (NEGATIVE); COLOR,URINE YELLOW (YELLOW); GLUCOSE, URINE (UA) 150-200 mg/dL (NEGATIVE); KETONES,URINE NEGATIVE (NEGATIVE); LEUKOCYTE ESTERASE ,URINE NEGATIVE (NEGATIVE); NITRATE,URINE NEGATIVE (NEGATIVE); OCCULT BLOOD,URINE NEGATIVE (NEGATIVE); PH,URINE 5.5 (5.0-8.0); PROTEIN,URINE TRACE mg/dL (NEGATIVE); SPECIFIC GRAVITIY, URINE 1.026 (1.003-1.030); UROBILINOGEN,URINE <=1.0 mg/dL (<=1.0)
[2023-07-16 13:23] LABS: BACTERIA,URINE None Seen /HPF (None Seen); RBC,URINE None Seen /HPF (0-2); SQUAMOUS EPITHELIAL CELL,UR Few /LPF (None Seen); WBC,URINE None Seen /HPF (0-5)
[2023-07-16] MEDS: LIDOCAINE/PF 1% 2 ML VIAL IM ONE (13:37)
[2023-07-16] MEDS: CefTRIAXone SODIUM 1 GM/VIAL IM ONE (13:37)
[2023-07-16] MEDS: AZITHROMYCIN 500 MG TABLET PO ONE (13:37)
[2023-07-16 15:55] VITALS: BP 138/84; PULSE 88; RESP 18
== END 2023-07-16 15:58 | disposition home or self-care (01) ==
LOC: EMS 11:26
DX: N89.8 Other specified noninflammatory disorders of vagina (principal); F31.9 Bipolar disorder, unspecified; E11.9 Type 2 diabetes mellitus without complications; E78.00 Pure hypercholesterolemia, unspecified; I10 Essential (primary) hypertension; E03.9 Hypothyroidism, unspecified; F20.9 Schizophrenia, unspecified; G89.29 Other chronic pain; Z90.710 Acquired absence of both cervix and uterus; Z98.890 Other specified postprocedural states; Z11.3 Encounter for screening for infections with a predominantly sexual mode of transmission
CPT/HCPCS: 99283; 81001; 82962; 87210; 87491; 87591; 96372; J0696; J3490; Q9967

== ENCOUNTER 2025-01-22 13:31 | Emergency (ER) | payer MEDICARE, OTHER ==
[~2025-01-22] VITALS: Ht 162.6 cm; Wt 78.0 kg
[~2025-01-22 13:31] MED LIST changes: -CLOP75TA60 PO; +CLOP75TA83 PO; +GABA-1404 PO; -GABA600T10 PO
[2025-01-22 13:50] VITALS: TEMP 98.2
[2025-01-22 14:01] LABS: GLUCOMETER DEV NAME(LOC) ER.7; GLUCOSE,POINT OF CARE 145 MG/DL (70-110)
[2025-01-22 15:27] VITALS: BP 140/78; PULSE 88; RESP 18; O2SAT 99
[2025-01-22] MEDS ORDERED: CEPH-558 PO (15:43)
[2025-01-22] MEDS ORDERED: FLUC150T61 PO (15:43)
== END 2025-01-22 15:53 | disposition home or self-care (01) ==
LOC: EMS 13:38
DX: L08.9 Local infection of the skin and subcutaneous tissue, unspecified (principal); E78.00 Pure hypercholesterolemia, unspecified; F20.9 Schizophrenia, unspecified; F31.9 Bipolar disorder, unspecified; I10 Essential (primary) hypertension; E11.9 Type 2 diabetes mellitus without complications; E03.9 Hypothyroidism, unspecified; Z79.82 Long term (current) use of aspirin; Z79.84 Long term (current) use of oral hypoglycemic drugs; Z79.899 Other long term (current) drug therapy; Z90.710 Acquired absence of both cervix and uterus
CPT/HCPCS: 82962; 99282